=== PATIENT | male | born 1980 | race Caucasian/White ===

== ENCOUNTER 2024-01-23 10:14 | Emergency (ER) | payer OTHER, SELFPAY ==
--- NOTE | ~2024-01-23 | XR_ITS ---
AP view of the pelvis and AP and lateral views of the right hip Clinical history: Pain Findings: No acute fracture or dislocation is seen. Osseous alignment is anatomic. Bilateral hip and SI joint spaces are preserved. Soft tissues are unremarkable. Impression: No significant abnormality is seen. Reviewed, dictated and finalized at location . Impression: No significant abnormality is seen.
[2024-01-23 10:25] VITALS: BP 150/80; PULSE 71; RESP 13; TEMP 36.5; O2SAT 99
--- NOTE | 2024-01-23 11:21 | ED.GENADULT ---
HPI - General Adult General Chief complaint: Extremity Problem,Nontraumatic Stated complaint: R hip pain Time Seen by Provider: 01/23/24 10:23 History of Present Illness HPI narrative: 43 old male presents to the emergency department for evaluation for right hip pain. Patient reports yesterday he woke up he was having some right hip pain the patient states he was very active during the day. Patient states he did do some power washing and was active on the hip and states that the hip began to worsen have more in the evening. Patient did take a muscle relaxant and ibuprofen states this did help control his pain a little bit but the pain returned. Patient did report increased difficulty sleeping due to the pain. Patient denies any specific incident fall or injury. 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 HEAD: normocephalic, atraumatic. EYES: PERRLA/EOMI, conjunctivae clear. NOSE: Normal no drainage EARS:TMS clear with good light reflex. THROAT: Pharynx clear, no exudate. NECK: Supple. No adenopathy, no masses. RESPIRATORY: Airway patent, respirations nonlabored. Clear to auscultation bilaterally, no rales, rhonchi, wheezing. CARDIOVASCULAR: Regular rate and rhythm without murmurs rubs or gallops. ABDOMINAL: Soft, nontender, nondistended, normal bowel sounds MUSCULOSKELETAL: Right hip tenderness to palpation, neurologically intact NEURO: Alert. Cranial nerves II through XII intact. Good gait. Good coordination SKIN: Warm, dry. Normal Color Course Vital Signs Vital signs: Vital Signs Temperature 97.7 F 01/23/24 10:25 Pulse Rate 71 01/23/24 10:25 Respiratory Rate 13 01/23/24 10:25 Blood Pressure 150/80 H 01/23/24 10:25 Pulse Oximetry 99 01/23/24 10:25 Temperature 97.7 F 01/23/24 10:25 Pulse Rate 73 01/23/24 11:45 Respiratory Rate 13 01/23/24 11:45 Blood Pressure 145/93 H 01/23/24 11:45 Pulse Oximetry 97 01/23/24 11:45 Medical Decision Making MDM Narrative Medical decision making narrative: 43-year-old male presents emergency department for evaluation for right hip strain. X-ray was negative for acute fracture dislocation. Patient describes more of a strain to the right hip. Patient was provided medications for pain control. Patient was encouraged to have close follow-up with his primary care physician for Differential Diagnosis Differential Diagnosis: Hip fracture, hip strain, pelvic fracture, osteoarthritis, arthritis Vital Signs Vital Signs: Vital Signs Temperature 97.7 F 01/23/24 10:25 Pulse Rate 71 01/23/24 10:25 Respiratory Rate 13 01/23/24 10:25 Blood
[2024-01-23] MEDS: HYDROcodone/acetaminophen (*CRX) 5-325 MG TABLET 1 TAB PO (11:29)
[2024-01-23] MEDS: CYCLOBENZAPRINE HCL 10 MG TABLET PO (11:30)
[2024-01-23 11:45] VITALS: BP 145/93; PULSE 73; RESP 13; O2SAT 97
== END 2024-01-23 11:56 | disposition home or self-care (01) ==
PROVIDERS: Emergency Provider Emergency Medicine; PCP Family Medicine
DX: S76.011A Strain of muscle, fascia and tendon of right hip, initial encounter (principal); Z87.891 Personal history of nicotine dependence; X50.9XXA Other and unspecified overexertion or strenuous movements or postures, initial encounter
CPT/HCPCS: 73502; 99283; A9270